=== PATIENT | male | born 1965 | race African-American/Black ===

== ENCOUNTER 2021-07-21 21:12 | Inpatient (IN) | payer OTHER ==
[~2021-07-21] VITALS: Ht 182.9 cm; Wt 222.7 kg
[2021-07-21 21:16] VITALS: BP 103/63
[2021-07-21] MEDS ORDERED: METFORMIN HCL500 M3 PO (21:18)
[2021-07-21] MEDS ORDERED: LIPITOR10 MG PO (21:19)
[2021-07-21] MEDS ORDERED: VAZALORE81 MG PO (21:19)
[2021-07-21 22:20] LABS: BE 1.2 mmol/L (-2 to +3); PCO2 41.2 mmHg (35.0-45.0); pH 7.416 (7.340-7.450)
[2021-07-21 22:25] LABS: PO2 141.5 mmHg (75.0-100.0)
[2021-07-21 22:51] LABS: ABSOLUTE BASOPHILS 0.1 thou/uL (0.0-0.2); ABSOLUTE EOSINOPHILS 0.1 thou/uL (0.0-0.7); ABSOLUTE MONOCYTES 0.8 thou/uL (0.0-1.2); ABSOLUTE NEUTROPHILS 5.8 thou/uL (1.6-8.1); BASOPHILS 0.9 %; EOSINOPHILS 0.6 %; HEMATOCRIT 41.7 % (42.0-52.0); HEMOGLOBIN 13.7 gm/dL (14.0-18.0); LYMPHOCYTES 12.6 %; MCH 27.4 pg (26.0-34.0); MONOCYTES 10.9 %; MPV 7.4 fl. (7.2-11.1); NUCLEATED RBCS 0 /100WBC; PLATELET COUNT* 328 thou/uL (150-400); RBC 5.02 mil/uL (4.50-6.00); RDW-CV 14.8 % (10.5-14.5); WBC 7.7 thou/uL (4.0-11.0)
[2021-07-21 23:01] LABS: CREATININE 1.3 mg/dL (0.6-1.3); POTASSIUM 4.5 mmol/L (3.5-5.1)
[2021-07-21 23:12] LABS: MAGNESIUM 2.2 mg/dL (1.8-2.4); TOTAL BILIRUBIN 0.6 mg/dL (<0.1-1.0); TOTAL PROTEIN 7.9 g/dL (6.4-8.2)
[2021-07-22 00:12] VITALS: BP 113/62
[2021-07-22 00:20] VITALS: BP 121/93
[2021-07-22 01:30] LABS: URINE BILIRUBIN NEGATIVE (Negative); URINE BLOOD NEGATIVE (Negative); URINE COLOR YELLOW; URINE GLUCOSE-RANDOM NEGATIVE (Negative); URINE KETONES NEGATIVE (Negative); URINE LEUKOCYTES-REFLEX 1+ (Negative); URINE NITRITE-REFLEX NEGATIVE (Negative); URINE PROTEIN NEGATIVE (Negative); URINE UROBILINOGEN 0.2 E.U./dl (0.2-1.0)
[2021-07-22 01:31] LABS: URINE CLARITY SL HAZY
[2021-07-22 01:44] LABS: BACTERIA-REFLEX >30 Many /HPF (None Seen); CASTS None Seen /LPF (None Seen); CRYSTALS None Seen /LPF (None Seen); MUCUS 0-3 Light strn/LPF (None Seen); SQUAMOUS 0-3 Few /LPF (0-3); TRANSITIONAL EPITHEL CELL 0-3 Few /LPF (None Seen); URINE RBC 3-10 Few /HPF (0-2); WBC CLUMPS Moderate (None Seen)
[2021-07-22 04:57] VITALS: BP 119/78
[2021-07-22 08:11] VITALS: BP 91/64
[2021-07-22 12:00] VITALS: BP 108/75
--- NOTE | 2021-07-22 12:31 | 2DMMODE ---
[place] [address] 2 D/M-MODE ECHOCARDIOGRAM Name: NAEEM CHANG Room: [address] IN [facility]#: [id number] Admission: 07/21/21 Attend Phys: Phong Mir Discharge: Date of : 63 Date of Service: 07/22/21 1231 Report #: [id number] THIS REPORT FOR: cc: FAM - No family physician/PCP FAM - No family physician/PCP Tyler Brewer MD [facility] ~ APPROVED REPORT Study performed: 07/22/2021 10:11:45 EXAM: Comprehensive 2D, Doppler, and color-flow Echocardiogram Patient Location: In-Patient Room #: [facility] Status: routine BSA: 3.13 HR: 96 bpm BP: 91/64 mmHg Rhythm: NSR Other Information Study Quality: Good Indications Elevated Troponin 2D Dimensions IVSd: 11.42 (7-11mm) LVOT Diam: 21.66 (18-24mm) LVDd: 37.63 mm PWd: 11.74 (7-11mm) Ascending Ao: 38.53 (22-36mm) LVDs: 21.46 (25-40mm) Aortic Root: 38.22 mm Volumes Left Atrial Volume (Systole) LA ESV Index: 16.50 mL/m2 Aortic Valve AoV Peak Benny.: 1.33 m/s AO Peak Gr.: 7.10 mmHg LVOT Max P.01 mmHg AO Mean Gr.: 3.80 mmHg LVOT Mean P.57 mmHg LVOT Max V: 0.87 m/s AO V2 VTI: 18.74 cm LVOT Mean V: 0.59 m/s STORMY (VTI): 2.66 cm2 LVOT V1 VTI: 13.53 [place] [address] 2 D/M-MODE ECHOCARDIOGRAM Name: NAEEM CHANG Room: [address] IN .R.#: [id number] Admission: 07/21/21 Attend Phys: Phong Mir Discharge: Date of : 63 Date of Service: 07/22/21 1231 Report #: [id number] Mitral Valve E/A Ratio: 1.03 MV Decel. Time: 232.06 ms MV E Max Benny.: 0.58 m/s MV PHT: 67.30 ms MVA (PHT): 3.27 cm2 TDI E/Lateral E': 6.44 E/Medial E': 5.27 Medial E' Benny.: 0.11 m/s Lateral E' Benny.: 0.09 m/s Pulmonary Valve PV Peak Benny.: 1.23 m/s PV Peak Gr.: 6.04 mmHg Tricuspid Valve RAP Estimate: 5.00 mmHg TR Peak Gr.: 40.70 mmHg RVSP: 45.00 mmHg PA Pressure: 45.00 mmHg Left Ventricle The left ventricle is normal size. There is normal LV segmental wall motion. Mild concentric left ventricular hypertrophy. Left ventricular systolic function is normal. LVEF is 60-65%. The left ventricular diastolic function is normal. Right Ventricle Right ventricle is moderately dilated. The right ventricular systolic function is normal. Atria The left atrium size is normal. Right atrium is moderately dilated. Aortic Valve The aortic valve is normal in structure. No aortic regurgitation is present. There is no aortic valvular stenosis. Mitral Valve The mitral valve is normal in structure. There is no mitral valve regurgitation noted. No evidence of mitral valve stenosis. Tricuspid Valve The tricuspid valve is normal in structure. Mild tricuspid regurgitation. Moderate pulmonary hypertension. The RVSP is 45-[place] [address] 2 D/M-MODE ECHOCARDIOGRAM Name: NAEEM CHANG Room: [address] IN [facility]#: [id number] Admission: 07/21/21 Attend Phys: Phong Mir Discharge: Date of : 63 Date of Service: 07/22/21 1231 Report #: [id number] Pulmonic Valve The pulmonary valve is normal in structure. There is no pulmonic valvular regurgitation. Great Vessels The aortic root is normal in size. IVC is normal in size and collapses >50% with inspiration. Pericardium There is no pericardial effusion. <Conclusion> The left ventricle is normal size. Mild concentric left ventricular hypertrophy. Left ventricular systolic function is normal. LVEF is 60-65%. The left ventricular diastolic function is normal. There is normal LV segmental wall motion. Right ventricle is moderately dilated. Right atrium is moderately dilated. Mild tricuspid regurgitation. Moderate pulmonary hypertension. The RVSP is 45-50 mmHg. <ELECTRONICALLY SIGNED> By: Tyler Brewer MD, FACC 07/22/21 1231 1231 1231 Tyler Brewer MD, FACC /INF
--- NOTE | 2021-07-22 12:38 | EKG ---
[place] [address] ELECTROCARDIOGRAM REPORT Name: TIA CHANGNEY Room: [address] ADM IN ..#: [id number] Admission: 07/21/21 Attend Phys: Phong Mir Discharge: Date of : 63 Date of Service: 07/21/212109 Report #: [id number] THIS REPORT FOR: //name// [facility] ED Test Date: 2021-07-21 Test Time: 21:10:59 Pat Name: NAEEM CHANG Department: Room: [facility] Gender: M [employer] Supervisor: [place] : 1965 Requested By: Emiliana Murcia Order Number: [id number] MD: Salomon Muir Measurements Intervals [place] Rate: 113 P: 64 VT: 179 QRS: 58 QRSD: 101 T: 4 QT: 354 QTc: 486 Interpretive Statements Sinus tachycardia Low voltage, precordial leads Borderline T wave abnormalities Borderline prolonged QT interval No previous ECG available for comparison Electronically Signed On 07-22-2021 12:38:26 CDT by Salomon Muir [email or web address] <ELECTRONICALLY SIGNED> By: Salomon Muir MD, [facility] 07/22/21 1238 09 09 Salomon Muir MD, [facility] /EPI
[2021-07-22 19:35] VITALS: BP 114/81
[2021-07-23] VITALS: BP 104/70
[2021-07-23 02:06] LABS: GLYCOHEMOGLOBIN (HGB A1C) 7.1 % (4.8-5.6)
[2021-07-23 04:45] VITALS: BP 109/73
[2021-07-23 08:54] LABS: HEMATOCRIT 39.8 % (42.0-52.0); HEMOGLOBIN 12.8 gm/dL (14.0-18.0); MCH 26.7 pg (26.0-34.0); MCHC 32.1 g/dL (28.0-37.0); MCV 83.3 fL (80.0-100.0); MPV 7.3 fl. (7.2-11.1); RBC 4.78 mil/uL (4.50-6.00); RDW-CV 15.1 % (10.5-14.5); WBC 10.3 thou/uL (4.0-11.0)
[2021-07-23 09:29] LABS: CALCIUM 8.8 mg/dL (8.5-10.1); CREATININE 1.4 mg/dL (0.6-1.3); POTASSIUM 4.8 mmol/L (3.5-5.1)
--- NOTE | 2021-07-23 09:35 | EKG ---
[place] [address] ELECTROCARDIOGRAM REPORT Name: TIA CHANGNEY Room: [address] ADM [place] ..#: [id number] Admission: 07/21/21 Attend Phys: Phong Mir Discharge: Date of : 63 Date of Service: 07/22/21 1235 Report #: [id number] THIS REPORT FOR: //name// [facility] Test Date: 2021-07-22 Test Time: 12:35:49 Pat Name: NAEEM CHANG Department: Room: [address] Gender: M [employer]: YANET : 1965 Requested By: Silvia Matute Order Number: [id number] MD: Salomon Muir Measurements Intervals [place] Rate: 93 P: 69 [place]: 180 QRS: 52 QRSD: 90 T: 31 QT: 366 QTc: 456 Interpretive Statements Sinus rhythm Anteroseptal infarct, age indeterminate possible Compared to ECG 07/21/2021 21:10:59 Myocardial infarct finding now present Sinus tachycardia no longer present T-wave abnormality no longer present Electronically Signed On 07-23-2021 9:34:52 CDT by Salomon Muir [email or web address] <ELECTRONICALLY SIGNED> By: Salomon Muir MD, FAC 07/23/21 0934 1235 1235 Salomon Muir MD, FAC /EPI
[2021-07-23 12:16] VITALS: BP 104/64
[2021-07-23 16:59] VITALS: BP 101/59
[2021-07-23 20:00] VITALS: BP 114/81
[2021-07-24 01:00] VITALS: BP 113/68
[2021-07-24 03:13] LABS: CALCIUM 8.5 mg/dL (8.5-10.1); CREATININE 1.3 mg/dL (0.6-1.3); POTASSIUM 4.8 mmol/L (3.5-5.1)
[2021-07-24 03:14] LABS: HEMATOCRIT 37.6 % (42.0-52.0); HEMOGLOBIN 12.2 gm/dL (14.0-18.0); MCH 27.3 pg (26.0-34.0); MCHC 32.4 g/dL (28.0-37.0); MCV 84.1 fL (80.0-100.0); MPV 7.4 fl. (7.2-11.1); RBC 4.47 mil/uL (4.50-6.00); RDW-CV 15.3 % (10.5-14.5); WBC 9.1 thou/uL (4.0-11.0)
[2021-07-24 04:54] VITALS: BP 101/62
[2021-07-24 09:00] VITALS: BP 95/65
[2021-07-24 11:31] LABS: BE 3.2 mmol/L (-2 to +3); PCO2 45.6 mmHg (35.0-45.0); PO2 98.8 mmHg (75.0-100.0); pH 7.412 (7.340-7.450)
[2021-07-24 12:00] VITALS: BP 102/69
[2021-07-24 17:18] VITALS: BP 107/63
[2021-07-24 20:00] VITALS: BP 90/49
[2021-07-25 00:14] VITALS: BP 108/57
[2021-07-25 04:28] VITALS: BP 114/73
[2021-07-25 04:32] LABS: HEMATOCRIT 39.8 % (42.0-52.0); HEMOGLOBIN 12.8 gm/dL (14.0-18.0); MCH 26.8 pg (26.0-34.0); MCV 83.8 fL (80.0-100.0); MPV 7.3 fl. (7.2-11.1); RBC 4.75 mil/uL (4.50-6.00); RDW-CV 15.1 % (10.5-14.5); WBC 8.5 thou/uL (4.0-11.0)
[2021-07-25 04:56] LABS: ALBUMIN 2.5 g/dL (3.4-5.0); CALCIUM 8.3 mg/dL (8.5-10.1); CREATININE 1.1 mg/dL (0.6-1.3); POTASSIUM 4.4 mmol/L (3.5-5.1); TOTAL BILIRUBIN 0.3 mg/dL (<0.1-1.0); TOTAL PROTEIN 6.7 g/dL (6.4-8.2)
[2021-07-25 09:00] VITALS: BP 113/70
[2021-07-25 12:00] VITALS: BP 120/54
[2021-07-25 16:00] VITALS: BP 131/73; BP 98/53
[2021-07-25 19:40] VITALS: BP 105/48; BP 124/76
[2021-07-26] VITALS: BP 106/62
[2021-07-26 04:00] VITALS: BP 120/75
[2021-07-26 05:07] LABS: HEMATOCRIT 38.9 % (42.0-52.0); HEMOGLOBIN 12.4 gm/dL (14.0-18.0); MCH 26.8 pg (26.0-34.0); MCHC 31.9 g/dL (28.0-37.0); MCV 84.2 fL (80.0-100.0); MPV 7.8 fl. (7.2-11.1); RBC 4.62 mil/uL (4.50-6.00); RDW-CV 14.7 % (10.5-14.5); WBC 8.3 thou/uL (4.0-11.0)
[2021-07-26 05:10] LABS: ALBUMIN 2.4 g/dL (3.4-5.0); CALCIUM 8.1 mg/dL (8.5-10.1); POTASSIUM 4.5 mmol/L (3.5-5.1); TOTAL BILIRUBIN 0.4 mg/dL (<0.1-1.0); TOTAL PROTEIN 6.4 g/dL (6.4-8.2)
[2021-07-26 08:00] VITALS: BP 114/68
[2021-07-26 12:00] VITALS: BP 112/64
[2021-07-26 20:00] VITALS: BP 142/77
[2021-07-26 23:27] VITALS: BP 117/51
[2021-07-27] VITALS (8 sets, daily range): BP systolic 110–117; BP diastolic 69–73
[2021-07-27 04:38] LABS: HEMOGLOBIN 12.7 gm/dL (14.0-18.0); MCH 27.4 pg (26.0-34.0); MCHC 32.7 g/dL (28.0-37.0); MCV 83.8 fL (80.0-100.0); MPV 7.7 fl. (7.2-11.1); RBC 4.65 mil/uL (4.50-6.00); RDW-CV 14.9 % (10.5-14.5); WBC 8.1 thou/uL (4.0-11.0)
[2021-07-27 04:57] LABS: ALBUMIN 2.5 g/dL (3.4-5.0); ALKALINE PHOSPHATASE 72 U/L (46-116); ANION GAP < 0 mmol/L (7-16); BUN 18 mg/dL (7-18); CHLORIDE 104 mmol/L (98-107); CO2 32 mmol/L (21-32); GLUCOSE 170 mg/dL (70-99); POTASSIUM 4.4 mmol/L (3.5-5.1); SGOT 28 U/L (15-37); SGPT 120 U/L (30-65); SODIUM 135 mmol/L (136-145); TOTAL BILIRUBIN 0.4 mg/dL (<0.1-1.0); TOTAL PROTEIN 6.4 g/dL (6.4-8.2)
[2021-07-27] MEDS ORDERED: LEVOFLOXACIN500 MG PO (08:58)
[2021-07-27] MEDS ORDERED: DEXAMETHASONE 22 M1 PO (08:58)
[2021-07-27] MEDS ORDERED: GLUCOTROL5 MG PO (09:03)
[2021-07-27] MEDS ORDERED: IPRAT-ALBUT 0.5-3 ML INH (09:08)
== END 2021-07-27 18:00 | disposition home or self-care (01) | DRG 177 ==
LOC: M.ERS 21:12 → M.ORTHSURG 23:09 → M.TBA-ER 23:09 → M.ORTHSURG 23:23
PROVIDERS: Emergency Medicine; Family Medicine; Internal Medicine; ADMIT Internal Medicine; ATTEND Internal Medicine
DX: U07.1 COVID-19 (principal); J12.82 Pneumonia due to coronavirus disease 2019; J96.01 Acute respiratory failure with hypoxia; I21.A1 Myocardial infarction type 2; I26.99 Other pulmonary embolism without acute cor pulmonale; N30.00 Acute cystitis without hematuria; Z68.44 Body mass index [BMI] 60.0-69.9, adult; E78.5 Hyperlipidemia, unspecified; E66.01 Morbid (severe) obesity due to excess calories; I10 Essential (primary) hypertension; E11.65 Type 2 diabetes mellitus with hyperglycemia; T38.0X5A Adverse effect of glucocorticoids and synthetic analogues, initial encounter; Y92.89 Other specified places as the place of occurrence of the external cause; Z88.8 Allergy status to other drugs, medicaments and biological substances; Z79.82 Long term (current) use of aspirin; Z79.899 Other long term (current) drug therapy